=== PATIENT | male | born 1990 | race American Indian/Alaskan Native ===

== ENCOUNTER 2017-04-01 15:38 | Emergency (ER) | payer MEDICAID ==
[2017-04-01 15:48] VITALS: RESP 20; TEMP 97.7
--- NOTE | 2017-04-01 15:50 | EDPHY ---
H & P Time Seen by Provider: 04/01/17 15:40 HPI/ROS: CHIEF COMPLAINT: Spider bite HISTORY OF PRESENT ILLNESS: The patient is a 26-year-old man who comes to the emergency department from shelter with what he thinks is a spider bite to his left finger and left biceps area. He states that they 1st showed up about a week ago. The he has not had a fever. He has not had any chills. He denies history of similar. He denies IV drug abuse. REVIEW OF SYSTEMS: Constitutional: denies: chills, fever, recent illness, recent injury EENTM: denies: blurred vision, double vision, nose congestion Respiratory: denies: cough, shortness of breath Cardiac: denies: chest pain, irregular heart rate, lightheadedness, palpitations Gastrointestinal/Abdominal: denies: abdominal pain, diarrhea, nausea, vomiting, blood streaked stools Genitourinary: denies: dysuria, frequency, hematuria, pain Musculoskeletal: denies: joint pain, muscle pain Skin: See HPI Neurological: denies: headache, numbness, paresthesia, tingling, dizziness, weakness Hematologic/Lymphatic: denies: blood clots, easy bleeding, easy bruising Immunologic/allergic: denies: HIV/AIDS, transplant EXAM: GENERAL: Well-appearing, well-nourished and in no acute distress. HEAD: Atraumatic, normocephalic. EYES: Pupils equal round and reactive to light, extraocular movements intact, sclera anicteric, conjunctiva are normal. ENT: TMs normal, nares patent, oropharynx clear without exudates. Moist mucous membranes. NECK: Normal range of motion, supple without lymphadenopathy or JVD. LUNGS: Breath sounds clear to auscultation bilaterally and equal. No wheezes rales or rhonchi. HEART: Regular rate and rhythm without murmurs, rubs or gallops. ABDOMEN: Soft, nontender, normoactive bowel sounds. No guarding, no rebound. No masses appreciated. BACK: No CVA tenderness, no spinal tenderness, step-offs or deformities EXTREMITIES: Normal range of motion, no pitting or edema. No clubbing or cyanosis. NEUROLOGICAL: Cranial nerves II through XII grossly intact. Normal speech, normal gait. 5/5 strength, normal movement in all extremities, normal sensation PSYCH: Normal mood, normal affect. SKIN: 1 x 2 cm abscess with central purulence to the proximal phalanx of the left ring finger. Primarily medially. Tender to palpation, normal range of motion. Also a small 1 x 1 cm area of fluctuance to the left biceps region. No erythema or purulence. Source: Patient Exam Limitations: No limitations - Personal History Current Tetanus/Diphtheria Vaccine: Yes - Medical/Surgical History Hx Asthma: No Hx Chronic Respiratory Disease: No Hx Diabetes: No Hx Cardiac Disease: No Hx Renal Disease: No Hx Cirrhosis: No Hx Alcoholism: No Other PMH: Hepatitis C - Family History Significant Family History: No pertinent family hx - Social History Alcohol Use: Occasionally Drug Use: Marijuana Constitutional: Initial Vital Signs Temperature (C) 36.5 C 04/01/17 15:46 Heart Rate 92 04/01/17 15:46 Respiratory Rate 20 04/01/17 15:46 Blood Pressure 129/90 H 04/01/17 15:46 O2 Sat (%) 96 04/01/17 15:46 O2 Delivery Mode Room Air Allergies/Adverse Reactions: No Known Allergies Allergy (Unverified 04/01/17 15:46) Home Medications: Medication Instructions Recorded Cephalexin [Keflex] 500 mg PO TID #21 cap 04/01/17 Sulfamethox/Tmp 800/160 mg 1 tab PO BID #14 tab 04/01/17 [Bactrim Ds] Medical Decision Making Procedures: Procedure: Abscess drainage. The patient's abscess was located on the left finger. I obtained verbal consent from the patient to drain the abscess who was informed about the possibility of bleeding and pain. The abscess was incised with 11 blade scalpel and 3 cc of purulent drainage was expressed. I irrigated the wound and placed some packing. The patient tolerated the procedure well. The procedure was performed by myself. Procedure: Abscess drainage. The patient's abscess was located on the left arm. I obtained verbal consent from the patient to drain the abscess who was informed about the possibility of bleeding and pain. The abscess was incised with 11 blade scalpel and 3 cc of purulent drainage was expressed. I irrigated the wound and placed some packing. The patient tolerated the procedure well. The procedure was performed by myself. ED Course/Re-evaluation: The patient he tolerated abscess drainage. Will start him on Bactrim and Keflex. He states that he is currently taking an antibiotic but he has not noted name. I told [facility] personnel to replace the antibiotics with 1 I prescribed unless it is the same. Differential Diagnosis: Partial list of the Differential diagnosis considered include but were not limited to; abscess, cellulitis and although unlikely based on the history and physical exam, I also considered tenosynovitis, foreign body. I discussed these differential diagnoses and the plan with the patient as well as the usual and expected course. The patient understands that the diagnosis is provisional and that in medicine we are not always correct and that further workup is often warranted. Usual and customary warnings were given. All of the patient's questions were answered. The patient was instructed to return to the emergency department should the symptoms at all worsen or return, otherwise to followup with the physician as we discussed. Departure - Departure Disposition: Home, Routine, Self-Care Clinical Impression: Abscess Condition: Fair Instructions: Abscess (ED) Referrals: Jesu Watson MD [Medical Doctor] - As per Instructions Prescriptions: Cephalexin [Keflex] 500 mg PO TID #21 cap Sulfamethox/Tmp 800/160 mg [Bactrim Ds] 1 tab PO BID #14 tab
[2017-04-01 17:37] VITALS: BP 140/91; PULSE 89; O2SAT 95
== END 2017-04-01 17:37 | disposition home or self-care (01) ==
PROC: 0H9GXZZ Drainage of Left Hand Skin, External Approach (ICD-10-PCS; principal; 2017-04-01)
DX: L02.414 Cutaneous abscess of left upper limb (principal); X58.XXXA Exposure to other specified factors, initial encounter; Y93.89 Activity, other specified